=== PATIENT | female | born 1975 | race African-American/Black ===

== ENCOUNTER 2024-06-17 13:53 | Inpatient (IN) | payer OTHER ==
[2024-06-17 14:09] VITALS: BMI 38.2
[2024-06-17] MEDS ORDERED: FAMOTIDINE 20 MG/50 ML IVPB 20 MG/50 ML MG IVPB ONE (15:37)
[2024-06-17] MEDS ORDERED: ACETAMINOPHEN INJECTION 100 ML ONE (15:37)
[2024-06-17] MEDS ORDERED: ONDANSETRON 4 MG/2 ML VIAL ONE (15:37)
[2024-06-17] MEDS: SODIUM CHLORIDE 0.9% 500 ML INFUS.BAG IV ONE (15:55)
[2024-06-17] MEDS: FAMOTIDINE 20 MG/50 ML IVPB 20 MG/50 ML MG IVPB ONE (15:55)
[2024-06-17] MEDS: ONDANSETRON 4 MG/2 ML VIAL IVPUSH ONE (15:55)
[2024-06-17] MEDS: ACETAMINOPHEN 1000 MG/100 ML BAG IVPB ONE (15:55)
[2024-06-17 15:58] LABS: BASO % 0.5 % (0-2.0); EOS % 1.3 % (0-4.5); HEMATOCRIT 36.2 % (32.4-45.2); LYMPH % 13.2 % (8-40); MCH 29.3 pg (25.7-33.7); MCHC 33.2 g/dl (32.0-36.0); MEAN CELL VOLUME 88.3 fl (80-96); MEAN PLT VOLUME 7.5 fl (7.5-11.1); MONO % 8.4 % (3.8-10.2); NEUT % 76.6 % (42.8-82.8); PLATELET COUNT 285 10^3/uL (134-434); RBC 4.09 M/mm3 (3.60-5.2); RDW 13.7 % (11.6-15.6); WHITE BLOOD COUNT 9.8 K/mm3 (4.0-10.0)
[2024-06-17 16:27] LABS: POTASSIUM 3.9 mmol/L (3.5-5.1)
[2024-06-17 16:29] LABS: ALBUMIN 3.4 g/dl (3.4-5.0); BLOOD UREA NITROGEN 9.8 mg/dL (7-18)
[2024-06-17 16:32] LABS: CREATININE 0.7 mg/dL (0.55-1.3)
[2024-06-17 16:34] LABS: BILIRUBIN,TOTAL 0.7 mg/dL (0.2-1); TOT PROT 6.7 g/dl (6.4-8.2)
[2024-06-17] MEDS ORDERED: MAG HYDROX/AL HYDROX/SIMETH 30 ML UNIT-DOSE CUP ONE (20:02)
[2024-06-17] MEDS: MAG HYDROX/AL HYDROX/SIMETH 30 ML UNIT-DOSE CUP PO ONE (20:06)
[2024-06-17] MEDS ORDERED: morphine SULFATE 4 MG/ML VIAL ONE (20:57)
[2024-06-17] MEDS: morphine CARPU-JECT 4 MG/1 ML DISP.SYRIN IVPUSH ONE (21:10)
[2024-06-17] MEDS: LACTATED RINGERS SOLUTION 1000 ML INFUS.BAG IV ONE (23:31)
[2024-06-17] MEDS ORDERED: PIPERACILLIN/TAZOB 4.5 GM 4.5 GM/100 ML BAG IVPB ONE (23:32)
[2024-06-17] MEDS: PIPERACILLIN/TAZOB 4.5 GM 4.5 GM in DEXTROSE 5%-WATER 100 ML IVPB ONE (23:39)
[2024-06-18] MEDS ORDERED: ONDANSETRON 4 MG/2 ML VIAL IVPUSH PRN ×2 (01:30→14:23)
[2024-06-18] MEDS ORDERED: MORPHINE SULFATE 2 MG/ML SYRINGE ONE (01:31)
[2024-06-18 01:44] LABS: INR 1.17 (0.83-1.09); PROTHROMBIN TIME (PATIENT) 12.7 SEC (9.7-13.0)
[2024-06-18 01:47] LABS: ACTIVATED PTT 29.8 SECONDS (25.2-36.5)
[2024-06-18] MEDS: MORPHINE SULFATE 2 MG/ML SYRINGE IVPUSH PRN (01:52)
[2024-06-18] MEDS: LACTATED RINGERS SOLUTION 1,000 ML/1,000 ML INFUS.BAG IV SCH (02:16)
[2024-06-18] MEDS ORDERED: PIPERACILLIN/TAZOB 3.375 GM 3.375 GM in DEXTROSE 5%-WATER - 50 ML IVPB SCH ×2 (05:30→17:30)
[2024-06-18] MEDS: ACETAMINOPHEN 325 MG TABLET (FP) PO PRN (08:14)
[2024-06-18] MEDS: PIPERACILLIN/TAZOB 3.375 GM 3.375 GM in DEXTROSE 5%-WATER - 50 ML IVPB SCH ×2 (08:15→16:45)
[2024-06-18 09:11] LABS: POTASSIUM 3.5 mmol/L (3.5-5.1)
[2024-06-18 09:15] LABS: BLOOD UREA NITROGEN 7.5 mg/dL (7-18); CALCIUM 9.2 mg/dL (8.5-10.1)
[2024-06-18] MEDS ORDERED: LACTATED RINGERS SOLUTION 1,000 ML IV SCH (09:15)
[2024-06-18 09:19] LABS: CREATININE 0.7 mg/dL (0.55-1.3)
[2024-06-18] MEDS: POLYETHYLENE GLYCOL (HEALTHYLAX) 3350 17 GM PACKET PO SCH (09:34)
[2024-06-18] MEDS: amLODIPine BESYLATE 5 MG TABLET (FP) PO SCH (09:35)
[2024-06-18] MEDS ORDERED: BUPIVACAINE HCL/PF 0.5% (5MG/ML) 10 ML VIAL ONE ×2 (09:57→13:00)
[2024-06-18] MEDS ORDERED: HYDROCHLOROTHIAZIDE 12.5 MG CAPSULE (FP) PO SCH (10:00)
[2024-06-18] MEDS ORDERED: PROPOFOL 20 ML ONE (10:04)
[2024-06-18] MEDS ORDERED: SUCCINYLCHOLINE CHLORIDE 200 MG/10 ML SYRINGE ONE (10:05)
[2024-06-18] MEDS ORDERED: ROCURONIUM BROMIDE 50 MG/5 ML SYRINGE ONE ×2 (10:05→11:19)
[2024-06-18] MEDS ORDERED: MIDAZOLAM HCL 2 MG/2 ML SINGLE DOSE VIAL ONE (10:05)
[2024-06-18] MEDS ORDERED: LIDOCAINE HCL/PF 2% SDV 5ML VIAL ONE (10:16)
[2024-06-18] MEDS: BUPIVACAINE HCL/PF 0.5% (5 MG/ML) 30 ML VIAL IJ ONE ×2 (10:38)
[2024-06-18] MEDS ORDERED: ALBUTEROL SO4 HFA INHALER IH ONE (11:22)
[2024-06-18] MEDS ORDERED: SUGAMMADEX SODIUM 200 MG/2 ML VIAL ONE ×2 (12:59→13:00)
[2024-06-18] MEDS ORDERED: oxyCODONE HCL 5 MG TABLET PO PRN ×2 (14:23)
[2024-06-18] MEDS ORDERED: PIPERACILLIN/TAZOBACTAM 3.375 GM VIAL IVPB ONE (14:26)
[2024-06-18] MEDS: PIPERACILLIN/TAZOB 3.375 GM 50 ML IVPB SCH (14:31)
[2024-06-18] MEDS: LACTATED RINGERS SOLUTION 1,000 ML IV SCH (16:16)
[2024-06-18] MEDS ORDERED: morphine CARPU-JECT 4 MG/1 ML DISP.SYRIN IVPUSH PRN (18:47)
[2024-06-18] MEDS: ACETAMINOPHEN 325 MG TABLET (FP) PO SCH (20:14)
[2024-06-19 08:09] LABS: POTASSIUM 3.6 mmol/L (3.5-5.1)
[2024-06-19 08:12] LABS: CALCIUM 8.3 mg/dL (8.5-10.1)
[2024-06-19 08:13] LABS: ALBUMIN 2.5 g/dl (3.4-5.0); BLOOD UREA NITROGEN 13.9 mg/dL (7-18)
[2024-06-19 08:15] LABS: CREATININE 0.8 mg/dL (0.55-1.3)
[2024-06-19 08:16] LABS: PHOSPHOROUS 2.7 mg/dL (2.5-4.9)
[2024-06-19 08:17] LABS: BILIRUBIN,TOTAL 1.5 mg/dL (0.2-1); TOT PROT 5.6 g/dl (6.4-8.2)
[2024-06-19 08:20] LABS: BASO % 0.1 % (0-2.0); HEMATOCRIT 30.3 % (32.4-45.2); HEMOGLOBIN 9.8 GM/dL (10.7-15.3); LYMPH % 9.4 % (8-40); MCH 28.8 pg (25.7-33.7); MCHC 32.1 g/dl (32.0-36.0); MEAN CELL VOLUME 89.5 fl (80-96); MEAN PLT VOLUME 8.2 fl (7.5-11.1); MONO % 7.3 % (3.8-10.2); NEUT % 83.2 % (42.8-82.8); PLATELET COUNT 223 10^3/uL (134-434); RBC 3.39 M/mm3 (3.60-5.2); RDW 13.2 % (11.6-15.6); WHITE BLOOD COUNT 11.4 K/mm3 (4.0-10.0)
[2024-06-19] MEDS: POLYETHYLENE GLYCOL (HEALTHYLAX) 3350 17 GM PACKET PO SCH (09:10)
[2024-06-19] MEDS: amLODIPine BESYLATE 5 MG TABLET (FP) PO SCH (09:11)
[2024-06-19] MEDS: ENOXAPARIN NA (PORCINE) 40 MG/0.4 ML DISP.SYRIN SQ SCH (14:05)
[2024-06-19] MEDS: MULTIVITAMINS (DAILY MVI) TABLET (FP) PO SCH (14:05)
[2024-06-20 08:42] LABS: BASO % 0.3 % (0-2.0); EOS % 1.2 % (0-4.5); HEMATOCRIT 28.5 % (32.4-45.2); HEMOGLOBIN 9.4 GM/dL (10.7-15.3); LYMPH % 13.4 % (8-40); MCH 29.6 pg (25.7-33.7); MCHC 32.9 g/dl (32.0-36.0); MEAN PLT VOLUME 8.1 fl (7.5-11.1); MONO % 7.1 % (3.8-10.2); PLATELET COUNT 225 10^3/uL (134-434); RBC 3.16 M/mm3 (3.60-5.2); RDW 13.3 % (11.6-15.6); WHITE BLOOD COUNT 10.2 K/mm3 (4.0-10.0)
[2024-06-20 09:00] LABS: POTASSIUM 3.5 mmol/L (3.5-5.1)
[2024-06-20 09:09] LABS: CALCIUM 8.2 mg/dL (8.5-10.1)
[2024-06-20 09:10] LABS: ALBUMIN 2.2 g/dl (3.4-5.0); BLOOD UREA NITROGEN 9.3 mg/dL (7-18)
[2024-06-20 09:12] LABS: CREATININE 0.7 mg/dL (0.55-1.3)
[2024-06-20 09:13] LABS: TOT PROT 5.1 g/dl (6.4-8.2)
[2024-06-20 14:55] VITALS: RESP 18
[2024-06-21] MEDS: AMOX TR/POT CLAV 875MG/125MG TABLETS (FP) PO ONE (09:25)
[2024-06-21 09:47] VITALS: BP 150/101; PULSE 99; TEMP 99.3
[2024-06-21 10:14] LABS: BASO % 0.5 % (0-2.0); EOS % 2.4 % (0-4.5); HEMATOCRIT 29.6 % (32.4-45.2); HEMOGLOBIN 9.8 GM/dL (10.7-15.3); LYMPH % 11.9 % (8-40); MCH 29.7 pg (25.7-33.7); MEAN CELL VOLUME 89.8 fl (80-96); MEAN PLT VOLUME 7.9 fl (7.5-11.1); MONO % 6.6 % (3.8-10.2); NEUT % 78.6 % (42.8-82.8); PLATELET COUNT 310 10^3/uL (134-434); RBC 3.29 M/mm3 (3.60-5.2); RDW 13.3 % (11.6-15.6); WHITE BLOOD COUNT 10.4 K/mm3 (4.0-10.0)
[2024-06-21 10:17] LABS: POTASSIUM 3.6 mmol/L (3.5-5.1)
[2024-06-21 10:23] LABS: ALBUMIN 2.2 g/dl (3.4-5.0); BLOOD UREA NITROGEN 8.1 mg/dL (7-18); CALCIUM 8.6 mg/dL (8.5-10.1); MAGNESIUM 2.1 mg/dL (1.8-2.4)
[2024-06-21 10:27] LABS: CREATININE 0.6 mg/dL (0.55-1.3)
[2024-06-21 10:28] LABS: BILIRUBIN,TOTAL 1.4 mg/dL (0.2-1); TOT PROT 5.5 g/dl (6.4-8.2)
== END 2024-06-21 09:55 | disposition home or self-care (01) | DRG 418 ==
LOC: JER 13:53 → JERBED 23:29 → UNDOADMIN 23:29 → J5S 06-18 02:33 → JERBED 06-18 02:33 → JASUSAT 06-18 09:35 → SUATTDRO 06-18 09:35 → J5S 06-18 09:41 → J8W 06-18 16:00 → JASUSAT 06-18 16:01
PROVIDERS: ADMIT Internal Medicine; ATTEND Nurse Practitioner Family
PROC: 0FT44ZZ Resection of Gallbladder, Percutaneous Endoscopic Approach (ICD-10-PCS; principal; 2024-06-18 11:00)
DX: K80.00 Calculus of gallbladder with acute cholecystitis without obstruction (principal); Z68.41 Body mass index [BMI] 40.0-44.9, adult; I10 Essential (primary) hypertension; K59.00 Constipation, unspecified; E66.01 Morbid (severe) obesity due to excess calories; R11.2 Nausea with vomiting, unspecified; Z98.84 Bariatric surgery status
CPT/HCPCS: 36415; 74177-TC; 76705-TC; 80048; 80053; 83690; 83735; 84100; 84702; 85025; 85610; 85730; 88304-TC; 93005; 93010; 94010; 94760; 99285-25; J0131; Q9967